=== PATIENT | female | born 1940 | race Caucasian/White ===

== ENCOUNTER 2025-06-10 13:11 | Emergency (ER) | payer MEDICARE, OTHER, SELFPAY ==
[2025-06-10] VITALS (14 sets, daily range): BP systolic 132–169; BP diastolic 60–93; PULSE 59–89; RESP 16; TEMP 36.4; O2SAT 92–97; BMI 38.5
--- NOTE | 2025-06-10 13:48 | DI.CT.S_ITS ---
PROCEDURE: CT ANGIO HEAD AND NECK INDICATIONS: Concern for stroke approximately 1 week ago TECHNIQUE: After the administration of intravenous contrast, 1 mm thick sections acquired from the aortic arch through the [place] of [place]. 3-dimensional eiwauqb-mjwlbjhwo-yhrnrbfimz (MIP) and/or volume rendering reformats were acquired of the central intracranial vasculature and neck separately. For radiation dose reduction, the following was used: automated exposure control, adjustment of mA and/or kV according to patient size. COMPARISON: None. FINDINGS: Image quality: Diagnostic. Cerebral CT Angiogram: Internal carotid arteries: No acute findings. Intracranial ICA are patent with no significant stenosis. No occlusion. No aneurysm. Anterior cerebral arteries: Unremarkable. No significant stenosis. No occlusion. No aneurysm. Middle cerebral arteries: Unremarkable. No significant stenosis. No occlusion. No aneurysm. Posterior cerebral arteries: Unremarkable. No significant stenosis. No occlusion. No aneurysm. Basilar artery: Unremarkable. No significant stenosis. No occlusion. No aneurysm. Vertebral arteries: Unremarkable as visualized. Dural venous sinuses: Unremarkable given phase of enhancement. Other: Arterial phase appearance of the brain parenchyma is unremarkable. Neck CT Angiogram: Internal carotid arteries: Unremarkable. No significant stenosis. No dissection or occlusion. Common carotid arteries: Unremarkable. No significant stenosis. No dissection or occlusion. External carotid arteries: Unremarkable. No occlusion. Vertebral arteries: Unremarkable. No significant stenosis. No dissection or occlusion. Aortic Arch and Mediastinum: Partially visualized aortic arch unremarkable without evidence of aneurysm. Origins of the great vessels unremarkable. Other: Arterial phase soft tissues of the neck and chest are unremarkable. IMPRESSION: No significant intracranial arterial abnormality is seen. No significant abnormality is seen within the arteries of the neck. Any quantitative measurements of stenosis were performed using NASCET criteria. Dictated by: Corona Coppola M.D. on 06/10/2025 at 15:20 Approved by: Corona Coppola M.D. on 06/10/2025 at 15:22
--- NOTE | 2025-06-10 14:14 | EKG_ITS ---
[address] [address] [place] [address] Test Date: 2025-06-10 Pat Name: Joycelyn Mathew Department: [facility] Room: Gender: Female [employer]: : 1940 Requested By: Order Number: [id number] Reading MD: Xavier Flowers Measurements Intervals [place] Rate: 65 P: IA: 310 QRS: -44 QRSD: 140 T: 134 QT: 444 QTc: 461 Interpretive Statements Sinus rhythm with marked sinus arrhythmia with 1st degree AV block with frequent ventricular-paced complexes Noisy baseline. Left axis deviation Left bundle branch block Electronically Signed On 06-13-2025 9:41:08 PDT by Xavier Flowers
[2025-06-10 14:32] LABS: Add Manual Diff / Slide Review NO; Hematocrit 35.7 % (36-46); Hemoglobin 12.8 g/dL (12.0-16.0); Lymphocytes Absolute Auto 1100 /uL (1100-4500); Mean Corpuscular HGB Conc 35.7 % (30-36); Mean Corpuscular Hemoglobin 32.6 PG (26-34); Mean Corpuscular Volume 91.2 fL (80-100); Platelet Count 179 X10^3/uL (150-400)
[2025-06-10 14:46] LABS: INR 2.0 (0.9-1.3); Prothrombin Time 22.3 SECONDS (9.4-12.5)
[2025-06-10 14:48] LABS: PTT Partial Thromboplastin Tim 34 SECONDS (25.1-36.5)
[2025-06-10 14:50] LABS: Alanine Aminotransferase 20 IU/L (<35); Albumin 4.4 g/dL (3.5-5.0); Albumin Globulin Ratio 1.2 (1.0-2.8); Alkaline Phosphatase 89 U/L (38-126); Blood Urea Nitrogen 27 mg/dL (7-17); Calcium 10.3 mg/dL (8.4-10.2); Carbon Dioxide 21 mmol/L (22-32); Chloride 105 mmol/L (98-107); Creatine Kinase 38 U/L (30-135); Estimated Glomerular Filt Rate 43 mL/min (>60); Globulin 3.6 g/dL (1.7-4.1); Glucose 113 mg/dL (70-99); HEMOLYSIS < 15 (0-50); Potassium 4.6 mmol/L (3.4-5.1); Sodium 136 mmol/L (137-145); Total Protein 8.0 g/dL (6.3-8.2)
--- NOTE | 2025-06-10 14:55 | DI.CT.S_ITS ---
PROCEDURE: CT HEAD/BRAIN WO CON INDICATIONS: Concern for stroke approximately 1 week ago TECHNIQUE: Noncontrast 4.5 mm thick angled axial sections acquired from the foramen magnum to the vertex, with coronal and sagittal reformats. For radiation dose reduction, the following was used: automated exposure control, adjustment of mA and/or kV according to patient size. COMPARISON: None. FINDINGS: Image quality: Diagnostic. CSF spaces: Basal cisterns are patent. No extra-axial fluid collections. The ventricles are symmetric in size and shape. Brain: No intracranial bleeds or mass effect. There is cerebral volume loss, with resultant ventricular and sulcal prominence. There are periventricular and deep white matter chronic small vessel ischemic changes. There is intracranial internal carotid artery atherosclerosis. Skull and face: Calvarium and visualized facial bones appear intact, without suspicious lesions. Sinuses: Visualized sinuses and mastoids are clear. IMPRESSION: No acute intracranial pathology. Dictated by: Corona Coppola M.D. on 06/10/2025 at 15:15 Approved by: Corona Coppola M.D. on 06/10/2025 at 15:16
[2025-06-10 15:01] LABS: Troponin I < 0.012 ng/mL (0.01-0.034)
--- NOTE | 2025-06-10 15:16 | ED.HA ---
HPI - Headache General Chief Complaint: Headache Stated Complaint: Per patient, Possible Stroke , head pain x 3 weeks Time Seen by Provider: 06/10/25 13:35 Mode of arrival: Wheelchair History of Present Illness HPI Narrative: 84-year-old woman with a history of hypertension, prior cardiac disease post CABG, anticoagulated on Eliquis, reflux, on torsemide and metoprolol also blind in her right eye presents today complaining of left lower extremity numbness and weakness this morning when she got out of bed, felt like her leg was simply going to give out. 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 This morning she noted a right-sided headache which is the main cause of concerned that stimulated her ER visit. Her caregiver came to check this morning and felt that she was slightly more confused in her higher cognitive functioning was not at its baseline. But he is concerned she may have had a stroke within the last 1-2 weeks. Today there are no localizing symptoms. Related Data Allergies Allergy/AdvReac Type Severity Reaction Status Date / Time lisinopril AdvReac Nausea Verified 06/10/25 13:21 Review of Systems Review of Systems Narrative: Pertinent positive and negative findings as per HPI Patient History Medical History (Updated 06/10/25 @ 17:07 by Cora Mckeon MD) Coronary artery disease Hypertension Surgical History (Updated 06/10/25 @ 15:23 by Cora Mckeon MD) Hx of CABG Smoking Status: Never smoker Alcohol type: wine Exam Initial Vital Signs Initial Vital Signs: Vital Signs Temperature 97.5 F L 06/10/25 13:21 Pulse Rate 74 06/10/25 13:21 Respiratory Rate 16 06/10/25 13:21 Blood Pressure 163/75 H 06/10/25 13:21 Pulse Oximetry 97 06/10/25 13:21 Oxygen Delivery Method Room Air 06/10/25 13:21 General: Older, Healthy appearing, in no acute distress. Able to give a complete and coherent history. HEENT: Moist mucous membranes, normal sclera with reactive pupils, Respiratory: Lungs are clear to auscultation, no wheezing no rales no rhonchi. Full and symmetrical air movement Cardiac: Regular rate and rhythm no murmurs no bruits Abdomen: Soft, nontender, no rebound or guarding, no flank pain Skin: Warm and dry, no rashes Neurologic: Grossly neurologically intact with no obvious asymmetries or abnormalities. NIH=0 Extremities: No trauma, no lower extremity edema Psych: Cooperative, appropriate insight and affect, speech is fluent Course Orders Ordered: ED Orders 06/10/25 13:48 CT angio head and neck Stat Urinalysis and Microscopic Stat Urine Drug Screen, Rapid Stat EKG-12 Lead Stat 06/10/25 14:22 Complete Blood Count AUTO DIFF Stat Comprehensive Metabolic Panel Stat PTT Partial Thromboplastin Louie Stat Prothrombin Time INR Stat Troponin & CK Cardiac Panel Stat 06/10/25 14:55 CT head/brain wo con Stat Vital Signs Vital signs: Vital Signs - 8 hr 06/10/25 13:21 06/10/25 13:56 06/10/25 13:57 Temperature 97.5 F L Pulse Rate 74 89 68 Respiratory Rate 16 Blood Pressure 163/75 H Pulse Oximetry 97 94 96 Oxygen Delivery Method Room Air 06/10/25 13:57 06/10/25 14:00 06/10/25 14:30 Temperature Pulse Rate 72 73 Respiratory Rate Blood Pressure 169/92 H Pulse Oximetry 97 97 Oxygen Delivery Method 06/10/25 14:31 06/10/25 14:31 06/10/25 15:04 Temperature Pulse Rate 73 59 L Respiratory Rate Blood Pressure 151/72 H Pulse Oximetry 97 92 Oxygen Delivery Method 06/10/25 15:05 06/10/25 15:05 Temperature Pulse Rate 67 Respiratory Rate Blood Pressure 164/78 H Pulse Oximetry 96 Oxygen Delivery Method MDM - Headache Lab Data 06/10/25 14:22 06/10/25 14:22 Labs: Lab Results 06/10/25 06/10/25 06/10/25 Range/Units 14:22 15:50 15:50 WBC 6.9 (4.5-11.0) X10^3/uL RBC 3.92 L (4.0-5.2) X10^6/uL Hgb 12.8 (12.0-16.0) g/dL Hct 35.7 L (36-46) % MCV 91.2 (80-100) fL MCH 32.6 (26-34) PG MCHC 35.7 (30-36) % RDW 12.7 (11.6-14.8) % Plt Count 179 (150-400) X10^3/uL Neut % (Auto) 72.5 (50-75) % Lymph % (Auto) 16.0 L (25-40) % [place] % (Auto) 6.8 (3-14) % Eos % (Auto) 3.7 (2-4) % Baso % (Auto) 1.0 (0-2) % Neut # (Auto) 5000 (5426-6997) /uL Lymph # (Auto) 1100 (4830-3016) /uL Woods # (Auto) 500 (0-900) /uL Eos # (Auto) 300 (0-450) /uL Baso # (Auto) 100 (0-100) /uL PT 22.3 H (9.4-12.5) SECONDS INR 2.0 H (0.9-1.3) APTT 34 (25.1-36.5) SECONDS Sodium 136 L (137-145) mmol/L Potassium 4.6 (3.4-5.1) mmol/L Chloride 105 (98-107) mmol/L Carbon Dioxide 21 L (22-32) mmol/L BUN 27 H (7-17) mg/dL Creatinine 1.25 H (0.52-1.04) mg/dL Estimated GFR 43 L (>60) mL/min BUN/Creatinine Ratio 21.6 (6-22) Glucose 113 H (70-99) mg/dL Calcium 10.3 H (8.4-10.2) mg/dL Total Bilirubin 1.1 (0.2-1.3) mg/dL AST 38 H (14-36) IU/L ALT 20 (<35) IU/L Alkaline Phosphatase 89 (38-126) U/L Total Creatine Kinase 38 (30-135) U/L Troponin I < 0.012 (0.01-0.034) ng/mL Total Protein 8.0 (6.3-8.2) g/dL Albumin 4.4 (3.5-5.0) g/dL Globulin 3.6 (1.7-4.1) g/dL Albumin/Globulin Ratio 1.2 (1.0-2.8) Urine Color Yellow Urine Appearance Clear Urine pH 5.5 Normal (4.5-8.0) Ur Specific [place] 1.010 (1.000-1.035) Urine Protein Negative (Negative) Urine Glucose (UA) Negative (Negative) g/dL Urine Ketones Negative (NEGATIVE) Urine Occult Blood Trace-intact (Negative) Urine Nitrate Negative (Negative) Urine Bilirubin Negative (NEGATIVE) Urine Urobilinogen 0.2 (0.2) E.U./dL Ur Leukocyte Esterase Negative (NEGATIVE) Urine RBC None seen (0-5/HPF) Urine WBC 0-1/hpf (0-5/HPF) Ur Squamous Epith Cells 0-1 /hpf (0-5/HPF) Urine Bacteria Occasional (0-1) (None) Ur Culture Indicated? Cult not indicated Vol Urine Centrifuged 10ml (spun) U Opiates 300ng/mL cut Negative (Negative) Ur Oxycodone Screen Negative (Negative) Urine Methadone Screen Negative (Negative) Ur Barbiturates Screen Negative (Negative) U Tricyclic Antidepress Negative (Negative) Ur Phencyclidine Scrn Negative (Negative) Ur Amphetamines Screen Negative (Negative) U Methamphetamines Scrn Negative (Negative) Ur MDMA Scrn (Ecstasy) Negative (Negative) U Benzodiazepines Scrn Negative (Negative) Urine Cocaine Screen Negative (Negative) U Marijuana (THC) Screen Negative (Negative) Urine Specific [place] Normal (Normal) Ur Creatinine Normal (Normal) MDM Narrative Medical decision making narrative: CC: Headache and this morning left lower extremity weakness Complicating co-morbidities: Coronary artery disease, hypertension, prior bypass surgery, no prior stroke Data collected from: patient Medical records reviewed: No medical records are available for review. Patient does have her medications which include losartan, carvedilol, amlodipine, apixaban Differential considered: Stroke, neuropathy/paresthesia, infection, complex migraine Exam documented above, pertinent findings include: Patient is alert and appropriate. So complaining of mild headache. No continued paresthesia or neuropathy. NIH equals 0 Lab Test results independently reviewed as above. Pertinent findings: CBC is unremarkable Chemistries show some mild abnormalities use including creatinine at 1.2, calcium 10.3 normal high is 10.2. AST 38 normal high as 36. Troponin is undetectable Urinalysis is unremarkable Independently reviewed EKG: Paced rhythm at a rate of 65 Imaging studies independently reviewed: CT scan of the head shows no intracranial abnormality CT angiogram of the head and neck shows no restrictive lesions Discussion: Findings reviewed with the patient. She is feeling better. There was no evidence of intracranial hemorrhage, CT angiogram of the head and neck was unremarkable. Labs were reassuring. Patient is feeling significantly better. Blood pressure has returned to appropriate levels. We discussed adding more fluid to her daily routine. I suggested adding a large glass of water every morning considering at a prescription medication to be consumed just as she would her pills. She thought this sounded like a very good idea and was more than willing to consider it. We discussed the fact that she currently is on appropriate blood pressure medications, she is anticoagulated which means that she is essentially appropriately treated for a TIA if that is what her symptoms represent from this morning. Her caregiver is with her and will follow up with the experiment in increased water consumption to see if this helps with her overall level of energy. At this point there is no indication for additional workup or hospitalization and she is safe for discharge Discharge Plan Departure Patient Disposition: Home Clinical Impression: Transient left leg weakness Headache Qualifiers: Headache type: unspecified Headache chronicity pattern: unspecified pattern Intractability: not intractable Qualified Code(s): R51.9 - Headache, unspecified Instructions: DI for Transient Ischemic Attack, DI for Headache Activity Restrictions/Additional Instructions: Thank you for coming in today Your workup was actually very reassuring. Your brain CT scan and the CT scan looking at all of the blood vessels from the top of your head to the top of your heart was quite reassuring. There was no evidence of bleeding, obstructions or areas were blood is slowly flowing. There is no evidence of stroke. You are already anticoagulated on the apixaban which means that your risk for further stroke is already low. Please do continue all of your blood pressure medications Regarding the headache I would recommend that you add 1 large glass of water every morning to your usual routine. You may find that the extra fluid just help you feel better all day. Please consider this a prescription to go along with your medications: 1 large glass of water 1st thing in the morning everyday If you find that you are getting worse or develop any new symptoms, please feel free to return to the emergency department for further evaluation. Stand Alone Forms: Patient Portal/API
[2025-06-10 15:55] LABS: Appearance Urine UA CLEAR; Bilirubin Urine UA NEGATIVE (NEGATIVE); Color Urine UA YELLOW; Glucose Urine UA NEGATIVE (Negative); Ketones Urine UA NEGATIVE (NEGATIVE); Leukocyte Esterase Urine UA NEGATIVE (NEGATIVE); Nitrite Urine UA NEGATIVE (Negative); Occult Blood Urine UA TRACE-INTACT (Negative); Protein Urine UA NEGATIVE (Negative); Specific Gravity Urine UA 1.010 (1.000-1.035); Urobilinogen Urine UA 0.2 E.U./dL (0.2)
[2025-06-10 16:00] LABS: pH Urine UA 5.5 (4.5-8.0)
[2025-06-10 16:03] LABS: Culture Indicated Urine Cult Not Indicated
[2025-06-10 16:32] LABS: UR Morphine/Opiate cutoff 300 Negative (Negative); Ur Specific Gravity Normal (Normal); Urine MDMA Negative (Negative); Urine Methamphetamines Negative (Negative); Urine Tetrahydrocannabinol Negative (Negative); Urine Tricyclic Antidepressant Negative (Negative)
== END 2025-06-10 17:24 | disposition home or self-care (01) ==
PROVIDERS: Emergency Provider Emergency Medicine
DX: R51.9 Headache, unspecified (principal); M62.81 Muscle weakness (generalized); Z79.01 Long term (current) use of anticoagulants; I10 Essential (primary) hypertension
CPT/HCPCS: 36415; 70450; 70496; 70498; 80053; 80305; 81001; 82550; 84484; 85025; 85610; 85730; 93005; 99284; Q9967